=== PATIENT | female | born 2000 | race Caucasian/White ===

== ENCOUNTER 2022-10-27 10:35 | Emergency (ER) | payer OTHER ==
[~2022-10-27] VITALS: Ht 154 cm; Wt 56.0 kg
[2022-10-27 11:15] VITALS: BP 121/83
[2022-10-27] MEDS ORDERED: KETOROLAC 30 MG/ML VIAL IM ONE (11:45)
[2022-10-27] MEDS ORDERED: ORPHENADRINE 60 MG/2 ML (NORFLEX) AMP (ED ONLY) IM ONE (11:45)
[2022-10-27] MEDS ORDERED: NAPR-915 PO (11:48)
[2022-10-27] MEDS ORDERED: CYCL10TA25 PO (11:48)
--- NOTE | 2022-10-27 11:49 | ED Back Pain ---
General Chief Complaint: Back Problems Stated Complaint: WC, LOWER BACK INJ Nursing Triage Note: PT CO OF L LOWER BACK PAIN THAT GOES DOWN L LEG. STATES HURTS TO STAND ON OR CROSS LEGS. RATES PAIN 03/29. STATES WAS BENDING DOWN AT WORK AND LOWER BACK STARTED HURTING Source of Information: Patient Exam Limitations: No Limitations (GOLDY HICKMAN) History of Present Illness Date Seen by Provider: Oct 27, 2022 Time Seen by Provider: 11:44 Initial Comments Patient is a 22-year-old female who presents ED with lower back pain. She states pain started yesterday while cleaning. She states she bent over and felt a sharp pain in her lower left back. This pain became worse after she continue bending over. Now she is having pain with standing on her left leg. Denies of any sharp shooting pain or numbness and tingling to her left leg, bowel or urine incontinence, saddle paresthesia. She denies of any fall or history of previous symptoms. She took Tylenol and ibuprofen at home without much improvement. She denies chest pain, shortness of breath, cough, headache, dizziness. (GOLDY HICKMAN) Allergies and Home Medications Allergies Coded Allergies: No Known Drug Allergies (Unverified , 10/27/22) Patient Home Medication List Home Medication List Reviewed: Yes (GOLDY HICKMAN) Cyclobenzaprine HCl (Cyclobenzaprine HCl) 10 Mg Tablet, 10 MG PO TID Prescribed by: FLAKO PADILLA on 10/27/22 1148 Naproxen (Naproxen) 500 Mg Tablet, 500 MG PO Q12H Prescribed by: FLAKO PADILLA on 10/27/22 1148 Review of Systems Constitutional: No chills, No diaphoresis, No weakness EENTM: No hearing loss, No ear pain Respiratory: No cough Cardiovascular: No chest pain Gastrointestinal: No abdominal pain, No diarrhea, No nausea, No vomiting Genitourinary: No decreased output, No discharge Musculoskeletal: back pain, joint pain Skin: No change in color (GOLDY HICKMAN) All Other Systems Reviewed Negative Unless Noted: Yes (GOLDY HICKMAN) Past Ncnates-Bremwu-Yiwcuc Hx Patient Social History Tobacco Use?: No Substance use?: No Alcohol Use?: Yes Alcohol type: Wine Alcohol Frequency: Once in a while Pt feels they are or have been: No (GOLDY HICKMAN) Immunizations Up To Date First/Initial COVID19 Vaccinat: YES Second COVID19 Vaccination Abner: YES COVID19 Vaccine Hand Iii Cutter: RODNEY (GOLDY HICKMAN) Past Medical History Surgery/Hospitalization HX: T AND A, Last Menstrual Period: Sep 13, 2022 (GOLDY HICKMAN) Physical Exam Vital Signs Vital Signs - First Documented 10/27/22 11:15 Temp 36.8 Pulse 80 Resp 16 B/P (MAP) 121/83 (96) Pulse Ox 100 (ALBERT CAVANAUGH MD) Vital Signs Capillary Refill : Less Than 3 Seconds (GOLDY HICKMAN) Height, Weight, BMI Height: '" Weight: lbs. oz. kg; 23.00 BMI Method: General Appearance: No Apparent Distress, WD/WN HEENT: PERRL/EOMI, TMs Normal, Normal ENT Inspection, Pharynx Normal Neck: Full Range of Motion, Normal Inspection, Non Tender Cardiovascular: Regular Rate, Rhythm, No Edema, No Gallop, No JVD Respiratory: Chest Non Tender, Lungs Clear, Normal Breath Sounds, No Accessory Muscle Use, No Respiratory Distress Gastrointestinal: Normal Bowel Sounds, No Organomegaly, No Pulsatile Mass, Non Tender Back: Other (No thoracic or lumbar midline tenderness. 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 Patient without any trauma or falls. Negative straight leg raise. No distal numbness and tingling. No neurological red flag findings. Suspect lumbar strain versus SI joint dysfunction. She was given dose of Toradol and N orflex. Will discharge with naproxen, muscle relaxers. Discussed stretching. Recommend follow-up with her PCP in 3 to 4 days for reevaluation. Provided work note. Provided stretching. Avoid heavy lifting. Return precaution were discussed. (GOLDY HICKMAN) Impression Primary Impression: Low back pain Disposition: HOME, SELF-CARE Condition: Stable Departure-Patient Inst. Decision time for Depature: 11:47 (GOLDY HICKMAN) Referrals: ISAAC COOK MD (PCP/Family) Primary Care Physician Patient Instructions: Low Back Pain ED, Sacroiliac Joint Pain Scripts Cyclobenzaprine HCl (Cyclobenzaprine HCl) 10 Mg Tablet 10 MG PO TID for Muscle Spasms, #16 TAB Prov: GOLDY HICKMAN 10/27/22 Naproxen (Naproxen) 500 Mg Tablet 500 MG PO Q12H for 10 Days, #20 TAB Prov: GOLDY HICKMAN 10/27/22 Work/School Note: Work Release Form Date Seen in the Emergency Department: Oct 27, 2022 Return to Work: Oct 30, 2022 ATTENDING PHYSICIAN NOTE: I was physically present as attending physician in the emergency department during the care of this patient, but I was not directly involved in the decision making or delivery of care for this patient. (ALBERT CAVANAUGH MD) GOLDY HICKMAN Oct 27, 2022 11:48 ALBERT CAVANAUGH MD Oct 28, 2022 09:18
== END 2022-10-27 12:05 | disposition home or self-care (01) ==
LOC: ER 10:40
DX: M54.50 Low back pain, unspecified (principal); X50.1XXA Overexertion from prolonged static or awkward postures, initial encounter; Y93.H9 Activity, other involving exterior property and land maintenance, building and construction; Y92.59 Other trade areas as the place of occurrence of the external cause; Y99.0 Civilian activity done for income or pay
CPT/HCPCS: 99284

== ENCOUNTER → 2023-04-09 | Outpatient (CLI) | payer OTHER ==
[~2023-04-09] MED LIST: CYCL10TA25 PO; NAPR-915 PO
--- NOTE | 2023-04-09 13:16 | Diagnostic Imaging Report ---
INDICATION: Right upper quadrant pain. TECHNIQUE: Patient was administered 5.0 mCi technetium-99m Choletec intravenously, and imaging over the abdomen was performed. After 45 minutes, the patient ingested 8 ounces of Ensure, and a gallbladder ejection fraction was calculated. FINDINGS: There is homogeneous uptake of activity by the liver with prompt excretion of activity into the common duct and gallbladder. Normal passage of activity into the small bowel is noted. There does appear to be some mild gastric reflux noted. Gallbladder ejection fraction is abnormally low at 26%. Normal values are 35% or greater. IMPRESSION: 1. Patent cystic duct and common bile duct. 2. Mild gastric bile reflux. 3. Low gallbladder ejection fraction of 26%. Dictated by: Dictated on workstation # [id number]
== END ==
LOC: CARD 09:56
PROVIDERS: ATTEND Surgery
DX: K21.9 Gastro-esophageal reflux disease without esophagitis (principal); K81.9 Cholecystitis, unspecified; K83.5 Biliary cyst
CPT/HCPCS: 78227; A9537

== ENCOUNTER 2023-04-19 05:28 | Outpatient (CLI) | payer OTHER ==
[~2023-04-19] VITALS: Ht 154.9 cm; Wt 59.1 kg
[2023-04-20] MEDS ORDERED: ETHI1TAB26 PO (10:38)
== END 2023-04-20 12:50 | disposition home or self-care (01) ==
LOC: PREOP 05:28
PROVIDERS: ATTEND Surgery
DX: Z01.818 Encounter for other preprocedural examination (principal)

== ENCOUNTER 2023-04-26 11:55 | Day surgery (SDC) | payer OTHER ==
[2023-04-26] VITALS (10 sets, daily range): BP systolic 105–138; BP diastolic 60–93
[~2023-04-26] VITALS: Ht 154.9 cm; Wt 59.1 kg
[~2023-04-26 11:55] MED LIST changes: +ETHI1TAB26 PO
[2023-04-26] MEDS ORDERED: proPOfol INJECTION 200 MG/20 ML VIAL IV ONE (12:17)
[2023-04-26] MEDS ORDERED: MIDAZOLAM INJ 2 MG/2 ML VIAL ONE (12:17)
[2023-04-26] MEDS ORDERED: dexAMETHasone INJ 10 MG/ML 1 ML VIAL ONE (12:17)
[2023-04-26] MEDS ORDERED: ROCURONIUM 50 MG/5 ML VIAL IV ONE (12:17)
[2023-04-26] MEDS ORDERED: ONDANSETRON INJECTION 4 MG/2 ML (SDV) ONE (12:17)
[2023-04-26] MEDS ORDERED: LIDOCAINE PF 2% 5 ML VIAL ONE (12:17)
[2023-04-26] MEDS ORDERED: fentaNYL INJECTION 100 MCG/2 ML VIAL ONE ×2 (12:17→14:41)
[2023-04-26] MEDS ORDERED: LIDOCAINE/EPI 1%-1:200,000 (XYLOCAINE) 30 ML VIAL ONE (12:20)
[2023-04-26] MEDS ORDERED: LACTATED RINGERS 1,000 ML 1,000 ML IV PRN (12:30)
[2023-04-26] MEDS ORDERED: CLINDAMYCIN 600 MG/50 ML IVPB 50 ML IV ONE (12:30)
--- NOTE | 2023-04-26 13:12 | Progress Note-Pre Operative ---
Pre-Operative Progress Note Date of Available H&P: Apr 26, 2023 Date H&P Reviewed: Apr 26, 2023 Time H&P Reviewed: 13:00 History & Physical: No changes noted Pre-Operative Diagnosis: biliary dyskinesia BETHANY CORRALES MD Apr 26, 2023 13:12
[2023-04-26] MEDS ORDERED: HYDR-3817 PO (13:13)
--- NOTE | 2023-04-26 13:14 | Discharge Inst-Surgical ---
D/C Lap Instructions-SAVANNA New, Converted, or Re-Newed RX: RX on Chart Follow Up Appt in 2 weeks Activity as tolerated No driving for 24 hours No driving while on pain medications Incentive Spirometry use every 2 hours while awake Regular Diet Symptoms to Report: Fever over 101 degree F, Nausea/Vomiting Infection Signs and Symptoms to report: Increased redness, Foul odor of wound, Increased drainage Bathing instructions: May shower Operative Area Clean/Dry; Keep incision clean/dry If any problems/questions: Contact your physician or go to Emergency Room BETHANY CORRALES MD Apr 26, 2023 13:14
[2023-04-26] MEDS ORDERED: ONDANSETRON INJECTION 4 MG/2 ML (SDV) IVP PRN ×2 (13:15→14:45)
[2023-04-26] MEDS ORDERED: ACETAMINOPHEN 325 MG TABLET PO PRN (13:15)
[2023-04-26] MEDS ORDERED: oxyCODONE/ACETAMINOPHEN 5/325MG TABLET PO PRN (13:15)
[2023-04-26] MEDS ORDERED: morphine INJ 10 MG/ML 1ML (SYR OR VIAL) IVP PRN ×2 (13:15)
[2023-04-26] MEDS ORDERED: LIDOCAINE/EPI 1%-1:200,000 (XYLOCAINE) 30 ML VIAL INJ ONE (13:46)
[2023-04-26] MEDS ORDERED: NEOSTIGMINE 1 MG/1ML 10 ML VIAL ONE (14:16)
[2023-04-26] MEDS ORDERED: GLYCOPYRROLATE INJ 0.2 MG/ML 2 ML VIAL ONE (14:16)
--- NOTE | 2023-04-26 14:24 | Progress Note-Post Operative ---
Post-Operative Progess Note Surgeon (s)/Paper Inspector (s) Surgeon BETHANY CORRALES MD Paper Inspector: james lyman LEASE OPERATOR Pre-Operative Diagnosis biliary dyskinesia Post-Operative Diagnosis same Procedure & Operative Findings Date of Procedure 04/26/23 Procedure Performed/Findings laparoscopic cholecystectomy Anesthesia Type get Estimated Blood Loss Estimated blood loss (mL): minimal Specimens/Packing Specimens Removed gallbladder BETHANY CORRALES MD Apr 26, 2023 14:24
[2023-04-26] MEDS ORDERED: KETOROLAC INJ 30 MG/ML VIAL ONE (14:31)
[2023-04-26] MEDS ORDERED: SEVOFLURANE (ULTANE) 15 ML INHAL SOLN ONE (14:32)
--- NOTE | 2023-04-26 14:42 | Anesthesia-General Post-Op ---
General Patient Condition Mental Status/LOC: Same as Preop Cardiovascular: Satisfactory Nausea/Vomiting: Absent Respiratory: Satisfactory Pain: Controlled Complications: Absent Post Op Complications Complications None Follow Up Care/Instructions Patient Instructions None needed. Anesthesia/Patient Condition Patient Condition Patient is doing well, no complaints, stable vital signs, no apparent adverse anesthesia problems. No complications reported per nursing. GHADA BLACKWOOD CRNA Apr 26, 2023 14:42
[2023-04-26] MEDS ORDERED: fentaNYL INJECTION 100 MCG/2 ML VIAL IVP ONE (14:45)
[2023-04-26] MEDS ORDERED: HYDROmorphone INJECTION 2 MG/ML VIAL IV ONE (14:45)
[2023-04-26] MEDS ORDERED: PROMETHAZINE INJ 25 MG/ML VIAL IVP ONE (14:45)
--- NOTE | 2023-04-26 20:22 | OPERATIVE REPORT ---
DATE OF SERVICE: 04/26/2023 ATTENDING PRIMARY CARE PHYSICIAN: Dr. Kristine Hannon. PREOPERATIVE DIAGNOSIS: Symptomatic biliary dyskinesia. POSTOPERATIVE DIAGNOSIS: Symptomatic biliary dyskinesia. PROCEDURE: Laparoscopic cholecystectomy. SURGEON: Bethany Corrales MD SYSTEMS REQUIREMENTS PLANNER: Sudarshan Cortes APRN ANESTHESIA: General endotracheal. ESTIMATED BLOOD LOSS: Minimal. FINDINGS: Symptomatic biliary dyskinesia. DISPOSITION: The patient tolerated the procedure well. INDICATIONS: The patient is a 23-year-old female who has had a 1-year history of intermittent episodes of abdominal distention and bloating, usually after eating meals. She states that this was infrequent and not significant in the earlier phases however, in the past few months, she states that this has become much more frequent and more severe in nature. She also reports the development of epigastric as well as right upper abdominal quadrant pain as well as episodes of nausea; however, no vomiting. An ultrasound was performed, which did not show any gallstones; however, she then underwent a HIDA scan, which showed a very low ejection fraction and she also experienced reproduction of symptoms with the administration of the Kinevac analogue consistent with symptomatic biliary dyskinesia. DESCRIPTION OF PROCEDURE: The patient was brought to the operating room, laid supine on the table. After adequate IV pain and sedative medications and general endotracheal intubation, the abdomen was prepped and draped in standard surgical fashion. A 0.5% Marcaine with epinephrine was then used to anesthetize the overlying skin in the left upper abdominal quadrant and a transverse skin incision made using a #15 blade. An 0 silk suture was applied to the medial aspect of the incision for retraction and a Veress needle inserted with a low opening pressure of 0 mmHg and the abdomen was then insufflated to 15 mmHg pressure. The Veress needle removed and a 5 mm trocar placed followed by a 5 mm 45-degree angle laparoscope visualized the peritoneal cavity. A 4-quadrant abdominal exploration was performed. What was visualized of the liver, gallbladder, omentum, small bowel and stomach appeared normal. Under direct visualization, we then proceeded to place a supraumbilical 10 mm port after the skin and peritoneal lining were anesthetized using 0.5% Marcaine with epinephrine and a crescent-shaped skin incision made using a #15 blade. In a similar manner, a right upper abdominal quadrant 5 mm port was placed. The patient was then placed in reverse Trendelenburg position as well as planed right side up, left side down. The hepatoduodenal ligament was then dissected using electrocautery as well as blunt dissection using the hook instrument as well as the [place] dissector. The entire critical view of safety was identified including the triangle of Calot as well as the cystic duct and artery as the only 2 structures going into the gallbladder as well as the cystic plate behind the proximal gallbladder. A timeout was then taken and the cystic duct and artery were then clipped proximally and distally and cut with EndoShears. The gallbladder was then dissected off of the liver bed using cautery on the hook instrument with visualization of good hemostasis as well as no leaking ducts of Luschka. The gallbladder was removed through the 10 mm port site using an EndoCatch bag. The 10 mm port site fascia and peritoneum were then closed under direct visualization using a Sathya-Luis Alfredo device and 0 Vicryl suture. The abdomen was desufflated and the remaining ports were removed. All skin incisions were closed using 4-0 Monocryl running subcuticular sutures. Wounds were then cleaned and covered with Dermabond. The patient tolerated the procedure well. We will start IV and oral pain medication as well as a clear liquid diet. Once she is tolerating clears, has good pain control with oral pain medications, ambulating well with discharge her home where she will be instructed to do no heavy lifting for the next 2 weeks. Job ID: [id number] DocumentID: [id number] Dictated Date: 04/26/2023 14:30:01 Social Services Specialist Date: 04/26/2023 20:20:00 Dictated By: BETHANY CORRALES MD [facility]
== END 2023-04-26 16:51 | disposition home or self-care (01) ==
LOC: SDC 11:55
PROVIDERS: ATTEND Surgery
DX: K81.1 Chronic cholecystitis (principal); K82.8 Other specified diseases of gallbladder
CPT/HCPCS: 84703; 87081

== ENCOUNTER 2023-04-26 23:58 | Emergency (ER) | payer OTHER ==
[~2023-04-26] VITALS: Ht 155 cm; Wt 59.0 kg
[~2023-04-26 23:58] MED LIST changes: +HYDR-3817 PO
[2023-04-27] MEDS ORDERED: fentaNYL INJECTION 100 MCG/2 ML VIAL IVP STA (00:11)
[2023-04-27] MEDS ORDERED: LACTATED RINGERS 1,000 ML 1,000 ML IV ONE (00:15)
[2023-04-27 00:22] LABS: BASOPHILS % (AUTO) 0 % (0-10); EOSINOPHILS % (AUTO) 0 % (0-10); HEMATOCRIT 41 % (35-52); LYMPHOCYTES % (AUTO) 8 % (12-44); MEAN CORPUSCULAR HEMOGLOBIN 31 pg (25-34); MEAN CORPUSCULAR HGB CONC 35 g/dL (32-36); MEAN CORPUSCULAR VOLUME 89 fL (80-99); MEAN PLATELET VOLUME 11.2 fL (9.0-12.2); MONOCYTES # (AUTO) 0.6 10^3/uL (0.0-1.0); MONOCYTES % (AUTO) 5 % (0-12); NEUTROPHILS % (AUTO) 87 % (42-75); PLATELET COUNT 215 10^3/uL (130-400); WHITE BLOOD COUNT 12.7 10^3/uL (4.3-11.0)
[2023-04-27 00:31] LABS: ALBUMIN 4.1 GM/DL (3.2-4.5); POTASSIUM 3.8 MMOL/L (3.6-5.0)
[2023-04-27 00:32] LABS: CALCIUM 8.9 MG/DL (8.5-10.1)
[2023-04-27 00:34] LABS: TOTAL PROTEIN 7.3 GM/DL (6.4-8.2)
[2023-04-27 00:35] LABS: BILIRUBIN,TOTAL 0.9 MG/DL (0.1-1.0)
[2023-04-27 00:37] LABS: CREATININE SERUM 0.69 MG/DL (0.60-1.30)
[2023-04-27 01:16] LABS: LYMPHOCYTES % (MANUAL) 10 %; NEUTROPHILS % (MANUAL) 87 %
--- NOTE | 2023-04-27 01:16 | ED Abdominal Pain ---
General Chief Complaint: Post OP Complications/Pain Stated Complaint: ABD PAIN Nursing Triage Note: PT TO RM 5 W REPORTS OF CHOLECYSTECTOMY W DR. CORRALES ON 04/26/23. PT C/O ABD PAIN AND PAIN W BREATHING, DESCRIBES PAIN A BAND THAT GOES AROUND ABDOMEN. PT A&OX4. + FLATUS SX DISCHARGE, + ORAL INTAKE SX DISCHARGE. Source of Information: Patient History of Present Illness Date Seen by Provider: Apr 27, 2023 Time Seen by Provider: 00:05 Initial Comments PT ARRIVES VIA POV FROM HOME PT HAD LAPAROSCOPIC CHOLECYSTECTOMY TODAY BY DR. CORRALES, AND WAS DISMISSED AT 1700 THIS EVENING SINCE AROUND 1830, SHE HAS HAD PAIN ALL AROUND UPPER ABDOMEN AND LOWER CHEST "LIKE A BAND" AROUND HER, AND IT HURTS TO BREATHE/TAKE A DEEP BREATH SHE ALSO IS HAVING ALOT OF INCISION PAIN SHE TOOK 1 HYDROCODONE 7.5 AT 1830, AND ANOTHER ONE AROUND 2230--NO RELIEF NO FEVER NO NAUSEA/VOMITING---PT ATE DINNER RIGHT AFTER SHE GOT HOME, AROUND 1800 TONIGHT--BROCCOLI AND CHEDDAR CHEESE SOUP, APPLESAUCE, JELLO. SHE HAS BEEN DRINKING LIQUIDS WELL SHE HAS BEEN PASSING GAS, BUT NO BM SINCE SURGERY SHE IS URINATING NORMALLY, DOES HAVE SOME PRESSURE WHEN SHE URINATES LMP--1 WEEK AGO, NORMAL. ON OCP'S NO PRIOR ABDOMINAL SURGERIES OR GI PROBLEMS NO CHRONIC MEDICAL PROBLEMS NO SMOKING, DRINKS 1-2 DRINKS/WEEK, NO DRUG USE. PCP: DR. COOK Allergies and Home Medications Allergies Coded Allergies: amoxicillin (Verified Allergy, Unknown, Itching, 04/20/23) Patient Home Medication List Home Medication List Reviewed: Yes Ethinyl Estradiol/Drospirenone (Mela 28 Tablet) 0.02 Mg-3 Mg (28) Tablet, 1 EACH PO, (Reported) Entered as Reported by: Azalia Castillo on 04/20/23 1038 Hydrocodone/Acetaminophen (Hydrocodone-Acetamin 7.5-325) 7.5 Mg-325 Mg Tablet, 1 EACH PO Q4H PRN for PAIN-BREAKTHROUGH Prescribed by: BETHANY CORRALES on 04/26/23 1313 Discontinued Medications Cyclobenzaprine HCl (Cyclobenzaprine HCl) 10 Mg Tablet, 10 MG PO TID Discontinued Reason: No Longer Taking Prescribed by: FLAKO PADILLA on 10/27/22 1148 Naproxen (Naproxen) 500 Mg Tablet, 500 MG PO Q12H Discontinued Reason: No Longer Taking Prescribed by: FLAKO PADILLA on 10/27/22 1148 Review of Systems Review of Systems Constitutional: no symptoms reported EENTM: No Symptoms Reported Respiratory: See HPI Cardiovascular: See HPI Gastrointestinal: See HPI Genitourinary: No Symptoms Reported Musculoskeletal: see HPI Skin: no symptoms reported Psychiatric/Neurological: No Symptoms Reported Endocrine: No Symptoms Reported Hematologic/Lymphatic: No Symptoms Reported Past Jrawybj-Gaegwl-Xhjrix Hx Patient Social History Tobacco Use?: No Use of E-Cig and/or Vaping dev: No Substance use?: No Alcohol Use?: Yes Alcohol Frequency: Couple times a week Immunizations Up To Date First/Initial COVID19 Vaccinat: YES Second COVID19 Vaccination Abner: YES Seasonal Allergies Seasonal Allergies: Yes Past Medical History Surgery/Hospitalization HX: T&A, WISDOM TEETH, [facility] Surgeries: Yes (T&A; WISDOM TEETH) Adenoidectomy, Gallbladder, Tonsillectomy Respiratory: No Cardiac: No Neurological: No : No Reproductive Disorders: No Female Reproductive Disorders: Denies HIV/AIDS: No Genitourinary: No Gastrointestinal: Yes (S/P [facility] 04/26/23) Gall Bladder Disease Musculoskeletal: No Endocrine: No HEENT: No Cancer: No Psychosocial: No Integumentary: No Blood Disorders: No Adverse Reaction/Blood Tranf: No Physical Exam Vital Signs Vital Signs - First Documented 04/27/23 00:03 Temp 36.9 Pulse 89 Resp 18 B/P (MAP) 137/89 (105) Pulse Ox 98 O2 Delivery Room Air Capillary Refill : Less Than 3 Seconds Height/Weight/BMI Height: '" Weight: lbs. oz. kg; 24.00 BMI Method: General Appearance: WD/WN, no apparent distress, other (WANTS WHEELCHAIR ON ARRIVAL, HOLDING PILLOW OVER ABDOMEN. ) Neck: normal inspection Respiratory: normal breath sounds, no respiratory distress, no accessory muscle use Cardiovascular: regular rate, rhythm, no murmur Gastrointestinal: soft, distended (SLIGHTLY DISTENDED BUT SOFT. ), guarding, tenderness, other (DOES HAVE BOWEL SOUNDS, BUT ARE DIMINISHED. 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 NO BLEEDING OR DRAINAGE. NO SIGNS OF INFECTION) Progress/Results/Core Measures Results/Orders Lab Results Laboratory Tests Test 04/27/23 00:10 04/27/23 01:26 Range/Units White Blood Count 12.7 H 4.3-11.0 10^3/uL Red Blood Count 4.54 3.80-5.11 10^6/uL Hemoglobin 14.0 11.5-16.0 g/dL Hematocrit 41 35-52 % Mean Corpuscular Volume 89 80-99 fL Mean Corpuscular Hemoglobin 31 25-34 pg Mean Corpuscular Hemoglobin Concent 35 32-36 g/dL Red Cell Distribution Width 11.9 10.0-14.5 % Platelet Count 215 130-400 10^3/uL Mean Platelet Volume 11.2 9.0-12.2 fL Immature Granulocyte % (Auto) 0 % Neutrophils (%) (Auto) 87 H 42-75 % Lymphocytes (%) (Auto) 8 L 12-44 % Monocytes (%) (Auto) 5 0-12 % Eosinophils (%) (Auto) 0 0-10 % Basophils (%) (Auto) 0 0-10 % Neutrophils # (Auto) 11.0 H 1.8-7.8 10^3/uL Lymphocytes # (Auto) 1.0 1.0-4.0 10^3/uL Monocytes # (Auto) 0.6 0.0-1.0 10^3/uL Eosinophils # (Auto) 0.0 0.0-0.3 10^3/uL Basophils # (Auto) 0.0 0.0-0.1 10^3/uL Immature Granulocyte # (Auto) 0.0 0.0-0.1 10^3/uL Neutrophils % (Manual) 87 % Lymphocytes % (Manual) 10 % Monocytes % (Manual) 3 % Sodium Level 133 L 135-145 MMOL/L Potassium Level 3.8 3.6-5.0 MMOL/L Chloride Level 102 98-107 MMOL/L Carbon Dioxide Level 19 L 21-32 MMOL/L Anion Gap 12 5-14 MMOL/L Blood Urea Nitrogen 8 7-18 MG/DL Creatinine 0.69 0.60-1.30 MG/DL Estimat Glomerular Filtration Rate 124 BUN/Creatinine Ratio 12 Glucose Level 153 H 70-105 MG/DL Calcium Level 8.9 8.5-10.1 MG/DL Corrected Calcium 8.8 8.5-10.1 MG/DL Total Bilirubin 0.9 0.1-1.0 MG/DL Aspartate Amino Transf (AST/SGOT) 80 H 5-34 U/L Alanine Aminotransferase (ALT/SGPT) 67 H 0-55 U/L Alkaline Phosphatase 48 40-136 U/L Total Protein 7.3 6.4-8.2 GM/DL Albumin 4.1 3.2-4.5 GM/DL Amylase Level 52 25-125 U/L Lipase 22 8-78 U/L Serum Test, Qualitative NEGATIVE NEGATIVE Urine Color YELLOW Urine Clarity CLEAR Urine pH 6.0 5-9 Urine Specific [place] 1.010 L 1.016-1.022 Urine Protein NEGATIVE NEGATIVE Urine Glucose (UA) NEGATIVE NEGATIVE Urine Ketones 3+ H NEGATIVE Urine Nitrite NEGATIVE NEGATIVE Urine Bilirubin NEGATIVE NEGATIVE Urine Urobilinogen 0.2 < = 1.0 MG/DL Urine Leukocyte Esterase NEGATIVE NEGATIVE Urine RBC (Auto) NEGATIVE NEGATIVE Urine RBC NONE /HPF Urine WBC NONE /HPF Urine Squamous Epithelial Cells 2-5 /HPF Urine Crystals NONE /LPF Urine Bacteria TRACE /HPF Urine Casts NONE /LPF Urine Mucus NEGATIVE /LPF Urine Culture Indicated NO My Orders Orders - ISAAC SAMAYOA DO Ed Iv/Invasive Line Start (04/27/23 00:05) Monitor-Rhythm Ecg Trace Only (04/27/23 00:05) Amylase (04/27/23 00:05) Cbc With Automated Diff (04/27/23 00:05) Comprehensive Metabolic Panel (04/27/23 00:05) Hcg,Qualitative Serum (04/27/23 00:05) Lipase (04/27/23 00:05) Ua Culture If Indicated (04/27/23 00:05) Ed Iv/Invasive Line Start (04/27/23 00:11) Lactated Ringers 1,000 Ml (Lactated Ring (04/27/23 00:15) Fentanyl Injection (Fentanyl Injection (04/27/23 00:11) Manual Differential (04/27/23 00:10) Rx-Oxycodone/Apap 5-325 Mg (Rx-Percocet (04/27/23 02:00) Fentanyl Injection (Fentanyl Injection (04/27/23 02:00) Medications Given in ED Current Medications Medications Dose Ordered Sig/Hank Route Start Time Stop Time Status Last Admin Dose Admin Fentanyl Citrate 50 mcg ONCE ONCE IVP 04/27/23 02:00 04/27/23 02:01 DC 04/27/23 02:01 50 MCG Lactated Ringer's 1,000 ml @ 0 mls/hr Q0M ONCE IV 04/27/23 00:15 04/27/23 00:16 DC 04/27/23 00:30 0 MLS/HR Oxycodone/ Acetaminophen 1 ea Q4H PRN PO 04/27/23 02:00 04/27/23 02:01 1 EA Vital Signs/I&O 04/27/23 00:03 Temp 36.9 Pulse 89 Resp 18 B/P (MAP) 137/89 (105) Pulse Ox 98 O2 Delivery Room Air Blood Pressure Mean: 105 Progress Progress Note : Progress Note VITALS ON ARRIVAL: TEMP 36.9=98.4, HR 89, RR 18, BP 137/89, O2 SAT 98% ON ROOM AIR GIVEN: -IV FLUIDS -FENTANYL FOR PAIN WITH MUCH IMPROVEMENT LABS: -CBC NORMAL WITH WBC 12.9 -CMP WITH NA 133, K 3.8, BUN 8, CR 0.69, GLU 153, BILI 0.9, AST 80, ALT 67 -AMYLASE/LIPASE NORMAL -HCG NEGATIVE -UA 3+ KETONES VITALS STABLE, AFEBRILE PAIN IMPROVED AT DISMISSAL DISCUSSED TEST RESULTS, ANTICIPATED COURSE, SYMPTOMATIC TREATMENT, DIET, MEDICATIONS, NEED FOR FOLLOW UP AND RETURN PRECAUTIONS REVIEWED PRIOR RECORDS INCLUDING SINGLE ER VISIT, AND SURGERY ADMIT/H&P/DISCHARGE SUMMARY, TESTS/PROCEDURE Departure Impression Primary Impression: Postoperative abdominal pain Additional Impression: S/P laparoscopic cholecystectomy Disposition: HOME, SELF-CARE Condition: Improved Departure-Patient Inst. Decision time for Depature: 01:51 Referrals: BETHANY CORRALES MD, LISA A MD (PCP/Family) Primary Care Physician Patient Instructions: Postoperative Pain (DC) Add. Discharge Instructions: LOTS OF CLEAR LIQUIDS--WATER, BROTH, JELLO, GATORADE BLAND DIET--AVOID MILK PRODUCTS OR HIGH FAT PRODUCTS OR ANY FOODS THAT HAVE POTENTIAL TO CAUSE INTESTINAL GAS, UNTIL YOU ARE FEELING BETTER USE MIRALAX DAILY WHILE YOU ARE TAKING THE PAIN MEDICATIONS USE GAS X EVERY [address] CORRALES'S OFFICE IN THE MORNING FOR FURTHER CARE RETURN TO ER IF YOUR SYMPTOMS WORSEN ISAAC SAMAYOA DO Apr 27, 2023 01:16
[2023-04-27 01:17] LABS: MONOCYTES % (MANUAL) 3 %
[2023-04-27 01:44] LABS: CLARITY,URINE CLEAR; COLOR,URINE YELLOW
[2023-04-27 01:45] LABS: BACTERIA,URINE TRACE /HPF; BILIRUBIN,URINE NEGATIVE (NEGATIVE); GLUCOSE, URINE (UA) NEGATIVE (NEGATIVE); KETONES,URINE 3+ (NEGATIVE); LEUKOCYTE ESTERASE ,URINE NEGATIVE (NEGATIVE); NITRITE,URINE NEGATIVE (NEGATIVE); PROTEIN,URINE NEGATIVE (NEGATIVE)
[2023-04-27] MEDS ORDERED: fentaNYL INJECTION 100 MCG/2 ML VIAL IVP ONE (02:00)
[2023-04-27] MEDS ORDERED: RX-OXYCODONE/APAP 5-325 MG #4 TAB PK PO PRN (02:00)
[2023-04-27 02:06] VITALS: BP 112/71
== END 2023-04-27 02:06 | disposition home or self-care (01) ==
LOC: EDUNIT# 23:58 → ER 04-27
DX: G89.18 Other acute postprocedural pain (principal); R10.84 Generalized abdominal pain
CPT/HCPCS: 36415; 80053; 81000; 82150; 83690; 84703; 85007; 85027; 93041